=== PATIENT | female | born 1995 | race Two or more races ===

== ENCOUNTER → 2017-03-22 | Outpatient (CLI) | payer OTHER ==
--- NOTE | 2017-03-23 05:32 | REP ---
Clinical: Dyspareunia . Technique: Transabdominal pelvic ultrasound followed by transvaginal examination for better evaluation of the endometrium and adnexa. Findings: Bladder is unremarkable and measures 8.4 x 6.7 x 4.6 cm . Normal anteverted uterus measures 8.0 x 2.9 x 4.3 cm . The endometrial complex measures 5.5 mm thickness. No discrete uterine or endometrial abnormalities are appreciated. Bilateral ovaries are normal in appearance and vascularity without evidence for torsion. Right ovary measures 2.8 x 2.2 x 2.2 cm with sub centimeter follicle. Left ovary measures 3.0 x 1.4 x 3.0 cm. No pelvic fluid or adnexal mass lesions. . Impression: 1. Normal pelvic ultrasound Signed by Jarred Powell MD 03/23/2017 05:23 A
== END ==
LOC: M WHC 09:47
PROVIDERS: ATTEND Nurse Practitioner Women's Health
DX: N94.10 Unspecified dyspareunia (principal)

== ENCOUNTER → 2017-04-07 | Outpatient (REF) | payer OTHER ==
[2017-04-07 12:17] LABS: BASO % 0.5 % (0.0-1.0); EOS # 0.1 K/mm3 (0.0-0.50); EOS % 1.3 % (0.0-3.0); LARGE UNSTAINED CELL # 0.1 K/mm3 (0.0-0.4); LARGE UNSTAINED CELL % 1.3 % (0.0-4.0); LYMPH # 1.8 K/mm3 (1.5-6.5); LYMPH % 24.3 % (24.0-44.0); MEAN CORPUSCULAR VOLUME 91.1 fl (80.0-96.0); MONO # 0.3 K/mm3 (0.0-0.8); MONO % 4.7 % (0.0-5.0); NEUTROPHILS # 4.8 K/mm3 (1.8-7.7); NEUTROPHILS % 67.9 % (36.0-66.0); PLATELET COUNT, AUTOMATED 337 k/mm3 (150-450); RED CELL DISTRIBUTION WIDTH 12.5 % (11.5-14.5); WHITE BLOOD COUNT 7.1 K/mm3 (4.0-10.0)
[2017-04-07 12:56] LABS: PROLACTIN 10.5 NG/ML
[2017-04-07 13:21] LABS: ALBUMIN 3.8 GM/DL (3.2-5.2); ALBUMIN/GLOBULIN RATIO 1.19 (1.00-1.93); ALKALINE PHOSPHATASE 67 U/L (45-117); ALT/SGPT 30 U/L (12-78); ANION GAP 9 MEQ/L (8-16); AST/SGOT 20 U/L (15-37); BILIRUBIN,TOTAL 0.5 MG/DL (0.2-1.0); BLOOD UREA NITROGEN 11 MG/DL (7-18); CALCIUM LEVEL 8.9 MG/DL (8.5-10.1); CARBON DIOXIDE LEVEL 27 MEQ/L (21-32); CHLORIDE LEVEL 105 MEQ/L (98-107); CREATININE FOR GFR 0.71 MG/DL (0.55-1.02); GLOMERULAR FILTRATION RATE > 60.0 (>60); GLUCOSE, FASTING 76 MG/DL (70-105); SODIUM LEVEL 141 MEQ/L (136-145)
== END ==
LOC: M LABDRAW1 10:55
PROVIDERS: ATTEND Family Medicine
DX: N94.12 Deep dyspareunia (principal)

== ENCOUNTER → 2018-09-28 | Outpatient (REF) | payer OTHER | LOC: M LAB REF 12:24 | DX: J02.9 Acute pharyngitis, unspecified (principal) ==

== ENCOUNTER → 2019-12-12 | Outpatient (CLI) | payer OTHER | LOC: M PLALAB 11:33 | PROVIDERS: ATTEND Advanced Practice Midwife | DX: O36.80X0 Pregnancy with inconclusive fetal viability, not applicable or unspecified (principal) ==

== ENCOUNTER → 2019-12-20 | Outpatient (CLI) | payer OTHER ==
--- NOTE | 2019-12-21 04:39 | REP ---
Clinical: Dating and viability. Technique: Transabdominal and transvaginal first trimester obstetrical ultrasound with color Doppler evaluation. Findings: Ultrasound examination demonstrates single live early intrauterine . CRL of 3.0 cm corresponds to 9 weeks 6 days gestational age with estimated date of delivery 07/18/2020. heart rate equals 154 beats per minute. No gross abnormalities are identified. Impression: Single live early intrauterine at 9 weeks 6 days gestational age. Complete anatomical assessment should be performed at 19-20 weeks.
== END ==
LOC: M WHC 15:00
PROVIDERS: ATTEND Advanced Practice Midwife
DX: O36.80X0 Pregnancy with inconclusive fetal viability, not applicable or unspecified (principal)

== ENCOUNTER → 2020-01-11 | Outpatient (CLI) | payer OTHER ==
[2020-01-11 19:28] LABS: HEMATOCRIT 36.9 % (36.0-47.0); HEMOGLOBIN 12.7 g/dl (12.0-15.5); MEAN CORPUSCULAR HEMOGLOBIN 30.7 pg (27.0-33.0); MEAN CORPUSCULAR HGB CONC 34.4 g/dl (32.0-36.5); MEAN CORPUSCULAR VOLUME 89.1 fl (80.0-96.0); PLATELET COUNT, AUTOMATED 339 10^3/uL (150-450); RED BLOOD COUNT 4.14 10^6/uL (4.00-5.40); WHITE BLOOD COUNT 11.3 10^3/uL (4.0-10.0)
[2020-01-11 21:08] LABS: CHLAMYDIA DNA AMPLIFICATION NEGATIVE (NEGATIVE); GC DNA AMPLIFICATION NEGATIVE (NEGATIVE)
[2020-01-14 11:06] LABS: HEPATITIS B SURFACE ANTIGEN NEGATIVE (NEGATIVE); HIV 1&2 SCREEN CENTAUR NEGATIVE (NEGATIVE); RUBELLA IgG QUALITATIVE IMMUNE (IMMUNE)
== END ==
LOC: M ADAMS 15:29
PROVIDERS: ATTEND Advanced Practice Midwife
DX: Z34.01 Encounter for supervision of normal first pregnancy, first trimester (principal); Z3A.00 Weeks of gestation of pregnancy not specified

== ENCOUNTER → 2020-02-27 | Outpatient (CLI) | payer BC ==
--- NOTE | 2020-02-27 13:37 | REP ---
OB ULTRASOUND: Real-time sonographic evaluation of the gravid uterus is performed. There is a single living intrauterine gestation with an estimated gestational age 19 weeks 5 days, EDC 07/18/2020. Today's measurements indicate appropriate growth. Biometry and Growth: BPD 46 mm = 19 weeks 6 days, 55th percentile HC 172 mm = 19 weeks 5 days, 52nd percentile AC 143 mm = 19 weeks 4 days, 49th percentile FL 31 mm = 19 weeks 5 days, 50th percentile HC/AC ratio 1.20, normal range 1.06 to 1.25. Estimated weight 307 grams, 46th percentile. SEEN/GROSSLY UNREMARKABLE Lateral ventricles Yes Posterior fossa Yes Upper lip Yes Four-chamber heart Yes LVOT Yes RVOT Yes Stomach Yes Cord insertion Yes Three vessel cord Yes Kidneys Yes Bladder Yes Spine Yes Cervical length: Closed and measures 3.4 cm in length. heart rate: 163 beats per minute. position: Variable. Placenta: Anterior and grade 1 with no previa or abruption. Amniotic fluid: Within normal limits.
== END ==
LOC: M WHC 10:57
PROVIDERS: ATTEND Advanced Practice Midwife
DX: Z34.02 Encounter for supervision of normal first pregnancy, second trimester (principal); Z3A.19 19 weeks gestation of pregnancy

== ENCOUNTER → 2020-03-12 | Outpatient (REF) | payer BC, OTHER | LOC: M PLALAB 07:41 | PROVIDERS: ATTEND Advanced Practice Midwife | DX: Z34.02 Encounter for supervision of normal first pregnancy, second trimester (principal) ==

== ENCOUNTER → 2020-04-16 | Outpatient (REF) | payer BC, OTHER ==
[2020-04-16 13:51] LABS: HEMATOCRIT 38.7 % (36.0-47.0); HEMOGLOBIN 12.8 g/dl (12.0-15.5); MEAN CORPUSCULAR HEMOGLOBIN 30.5 pg (27.0-33.0); MEAN CORPUSCULAR HGB CONC 33.1 g/dl (32.0-36.5); MEAN CORPUSCULAR VOLUME 92.1 fl (80.0-96.0); PLATELET COUNT, AUTOMATED 326 10^3/uL (150-450); WHITE BLOOD COUNT 8.9 10^3/uL (4.0-10.0)
== END ==
LOC: M PLALAB 08:44
PROVIDERS: ATTEND Advanced Practice Midwife
DX: Z34.02 Encounter for supervision of normal first pregnancy, second trimester (principal)

== ENCOUNTER → 2020-06-25 | Outpatient (REF) | payer BC, OTHER | LOC: M SFHCWAGY 12:20 | PROVIDERS: ATTEND Advanced Practice Midwife | DX: Z34.83 Encounter for supervision of other normal pregnancy, third trimester (principal) ==

== ENCOUNTER 2020-07-05 03:30 | Inpatient (IN) | payer BC, OTHER ==
[2020-07-05] MEDS ORDERED: PENICILLIN G POTASSIUM 5 MU VIAL ONE (04:11)
[2020-07-05] MEDS ORDERED: FENTANYL 2MCG/ML ROPIVACAINE 0.2% IN 0.9% NACL 100ML IVBAG ONE (04:28)
[2020-07-05] MEDS ORDERED: OXYTOCIN 30 UNITS IN 0.9% NaCl 500ML IV BAG (J2590) ONE (07:05)
[2020-07-05] MEDS ORDERED: PENICILLIN 100,000 U/ML SYRINGE 2.5MU ONE (08:28)
[2020-07-05] MEDS ORDERED: LIDOCAINE 1% MDV 20ML VIAL ONE (13:45)
[2020-07-05] MEDS ORDERED: IBUPROFEN 800 MG TAB ONE (15:58)
[2020-07-06] MEDS ORDERED: IBUPROFEN 800 MG TAB ONE ×2 (00:29→17:11)
[2020-07-06] MEDS ORDERED: IBUPROFEN 800 MG TAB As Ordered ONE ×2 (00:29→17:11)
[2020-07-06] MEDS ORDERED: ACETAMINOPHEN 500 MG TAB As Ordered ONE (10:27)
[2020-07-06] MEDS ORDERED: ACETAMINOPHEN 500 MG TAB ONE (10:27)
[2020-07-06] MEDS ORDERED: DOCUSATE SODIUM 100 MG CAP As Ordered ONE (20:39)
[2020-07-06] MEDS ORDERED: DOCUSATE SODIUM 100 MG CAP ONE (20:39)
[2020-08-22 14:25] LABS: HEMATOCRIT 39.7 % (36.0-47.0); HEMOGLOBIN 13.5 g/dl (12.0-15.5); MEAN CORPUSCULAR HEMOGLOBIN 30.1 pg (27.0-33.0); MEAN CORPUSCULAR VOLUME 88.4 fl (80.0-96.0); PLATELET COUNT, AUTOMATED 346 10^3/uL (150-450); RED BLOOD COUNT 4.49 10^6/uL (4.00-5.40); WHITE BLOOD COUNT 13.8 10^3/uL (4.0-10.0)
--- NOTE | 2020-09-04 15:59 | DN ---
DATE OF DELIVERY: 07/05/2020 PREDELIVERY DIAGNOSIS: Term , labor. POST DELIVERY DIAGNOSIS: Delivered. PROCEDURE: Spontaneous vaginal delivery. LEAD RIDER: Chaim De Anda M.D. ANESTHESIA: Epidural. ESTIMATED BLOOD LOSS: 300 mL. FINDINGS: A 7-pound 0-ounce male , scores 8 and 9. DESCRIPTION OF DELIVERY: After a 30-minute second stage, patient had spontaneous delivery of a 7-pound 0-ounce male , scores 8 and 9, under epidural anesthesia. A tight nuchal cord times one was clamped and cut on the perineum. The shoulders delivered with ease. The infant was handed to the mother. The placenta delivered spontaneous and appeared to be intact. The patient received intravenous (IV) Pitocin immediately after delivery of the placenta. A second- degree perineal laceration was repaired under local anesthesia with 2-0 chromic in the usual fashion. Sponge and needle counts were correct. MTDD
== END 2020-07-07 08:30 | disposition home or self-care (01) | DRG 560 ==
LOC: M LDI 03:30
PROVIDERS: ADMIT Advanced Practice Midwife; ATTEND Advanced Practice Midwife
PROC: 10E0XZZ Delivery of Products of Conception, External Approach (ICD-10-PCS; principal; 2020-07-05)
PROC: 0KQM0ZZ Repair Perineum Muscle, Open Approach (ICD-10-PCS; 2020-07-05)
DX: O69.1XX0 Labor and delivery complicated by cord around neck, with compression, not applicable or unspecified (principal); O70.1 Second degree perineal laceration during delivery; Z37.0 Single live birth; Z3A.38 38 weeks gestation of pregnancy

== ENCOUNTER → 2021-06-18 | Outpatient (REF) | payer BC, OTHER | LOC: M SFHCWAGY 18:39 | PROVIDERS: ATTEND Specialist | DX: Z01.419 Encounter for gynecological examination (general) (routine) without abnormal findings (principal) ==

== ENCOUNTER → 2021-10-06 | Outpatient (CLI) | payer BC, OTHER | LOC: M PLALAB 15:32 | PROVIDERS: ATTEND Advanced Practice Midwife | DX: O36.80X0 Pregnancy with inconclusive fetal viability, not applicable or unspecified (principal) ==

== ENCOUNTER → 2021-10-08 | Outpatient (CLI) | payer BC | LOC: M LAB 16:13 | PROVIDERS: ATTEND Advanced Practice Midwife | DX: O36.80X0 Pregnancy with inconclusive fetal viability, not applicable or unspecified (principal); Z3A.00 Weeks of gestation of pregnancy not specified ==

== ENCOUNTER → 2021-10-29 | Outpatient (CLI) | payer BC, OTHER ==
[2021-10-29 17:52] LABS: HEMATOCRIT 37.8 % (36.0-47.0); HEMOGLOBIN 12.9 g/dl (12.0-15.5); MEAN CORPUSCULAR HEMOGLOBIN 30.4 pg (27.0-33.0); MEAN CORPUSCULAR HGB CONC 34.1 g/dl (32.0-36.5); MEAN CORPUSCULAR VOLUME 89.2 fl (80.0-96.0); PLATELET COUNT, AUTOMATED 318 10^3/uL (150-450); RED BLOOD COUNT 4.24 10^6/uL (4.00-5.40); WHITE BLOOD COUNT 10.6 10^3/uL (4.0-10.0)
[2021-10-29 19:08] LABS: HEPATITIS C VIRUS ABY INDEX 0.1 INDEX (<0.8); HIV 1&2 SCREEN CENTAUR NEGATIVE (NEGATIVE)
[2021-10-29 19:32] LABS: GC DNA AMPLIFICATION NEGATIVE (NEGATIVE)
== END ==
LOC: M PLALAB 15:29
PROVIDERS: ATTEND Advanced Practice Midwife
DX: Z34.81 Encounter for supervision of other normal pregnancy, first trimester (principal); Z3A.00 Weeks of gestation of pregnancy not specified

== ENCOUNTER → 2021-11-11 | Outpatient (REF) | payer BC, OTHER | LOC: M LAB REF 19:09 | PROVIDERS: ATTEND Nurse Practitioner Family | DX: A08.4 Viral intestinal infection, unspecified (principal) ==

== ENCOUNTER → 2022-02-19 | Outpatient (CLI) | payer BC ==
[2022-02-19 13:33] LABS: HEMATOCRIT 33.7 % (36.0-47.0); HEMOGLOBIN 11.7 g/dl (12.0-15.5); MEAN CORPUSCULAR HGB CONC 34.7 g/dl (32.0-36.5); MEAN CORPUSCULAR VOLUME 92.1 fl (80.0-96.0); PLATELET COUNT, AUTOMATED 264 10^3/uL (150-450); RED BLOOD COUNT 3.66 10^6/uL (4.00-5.40); WHITE BLOOD COUNT 10.7 10^3/uL (4.0-10.0)
[2022-02-19 15:02] LABS: GC DNA AMPLIFICATION NEGATIVE (NEGATIVE)
== END ==
LOC: M PLALAB 09:50
PROVIDERS: ATTEND Specialist
DX: Z34.82 Encounter for supervision of other normal pregnancy, second trimester (principal)

== ENCOUNTER → 2022-05-14 | Outpatient (REF) | payer BC, OTHER ==
[~2022-05-14] MED LIST: PRENTAB9 PO
== END ==
LOC: M SFHCWAGY 17:23
PROVIDERS: ATTEND Advanced Practice Midwife
DX: Z36.85 Encounter for antenatal screening for Streptococcus B (principal)

== ENCOUNTER 2022-05-26 17:28 | Inpatient (IN) | payer BC, OTHER ==
[~2022-05-26] VITALS: Ht 157.5 cm; Wt 83.6 kg
[2022-05-26 17:44] VITALS: BP 114/74
[2022-05-26] MEDS ORDERED: PENICILLIN G POTASSIUM IV 5 MU in D5W MINI-BAG PLUS 100 ML IV STA (17:52)
[2022-05-26] MEDS ORDERED: LIDOCAINE 1% MDV 20ML VIAL INFIL PRN (17:55)
[2022-05-26] MEDS ORDERED: LR 1,000 ML IV SCH ×2 (17:55→18:15)
[2022-05-26] MEDS ORDERED: TRANEXAMIC ACID INJection 1,000 MG in NS 100 ML IV PRN (17:55)
[2022-05-26] MEDS ORDERED: METHYLERGONOVINE MALEATE 0.2 MG/ML VIAL (J2210) IM PRN (17:55)
[2022-05-26] MEDS ORDERED: OXYTOCIN DRIP 30 UNITS in IV 1 EA IV PRN ×4 (17:55)
[2022-05-26] MEDS ORDERED: OXYTOCIN INJ 10 UNITS/ML VIAL (J2590) IM PRN (17:55)
[2022-05-26] MEDS ORDERED: CARBOPROST TROMETHAMINE 250 MCG/ML AMP IM PRN (17:55)
[2022-05-26] MEDS ORDERED: TUMS500C PO (17:59)
[2022-05-26] MEDS ORDERED: HOME MED LIST COMPLETE! XX SCH ×2 (18:00→18:30)
[2022-05-26] MEDS ORDERED: LACTATED RINGER'S 1000 ML IV ONE (18:15)
[2022-05-26 18:23] LABS: HEMATOCRIT 35.5 % (36.0-47.0); HEMOGLOBIN 12.2 g/dl (12.0-15.5); MEAN CORPUSCULAR HEMOGLOBIN 30.7 pg (27.0-33.0); MEAN CORPUSCULAR HGB CONC 34.4 g/dl (32.0-36.5); MEAN CORPUSCULAR VOLUME 89.4 fl (80.0-96.0); PLATELET COUNT, AUTOMATED 329 10^3/uL (150-450); RED BLOOD COUNT 3.97 10^6/uL (4.00-5.40)
[2022-05-26] MEDS ORDERED: FENTANYL 2MCG/ML ROPIVACAINE 0.2% IN 0.9% NACL 100ML IVBAG As Ordered ONE (18:48)
[2022-05-26 19:33] VITALS: BP 102/70
[2022-05-26] MEDS ORDERED: ACETAMINOPHEN 500 MG TAB PO PRN (19:40)
[2022-05-26] MEDS ORDERED: ACETAMINOPHEN TAB 650MG DOSE (2X325MG) PO PRN (19:40)
[2022-05-26] MEDS ORDERED: IBUPROFEN 800 MG TAB PO PRN (19:40)
[2022-05-26] MEDS ORDERED: RHOGAM 300 MCG (1500 IU) INJ (J2790) IM SCH (19:40)
[2022-05-26] MEDS ORDERED: IBUPROFEN 600MG TAB PO PRN (19:40)
[2022-05-26] MEDS ORDERED: DIBUCAINE 1% OINTMENT 30GM TOP PRN (19:40)
[2022-05-26] MEDS ORDERED: METHYLERGONOVINE MALEATE 0.2 MG TAB PO PRN (19:40)
[2022-05-26] MEDS ORDERED: DOCUSATE SODIUM 100MG CAPSULE PO PRN (19:40)
[2022-05-26] MEDS ORDERED: OXYTOCIN DRIP 30 UNITS in IV 1 EA IV SCH (19:40)
[2022-05-26 19:47] VITALS: BP 111/68
[2022-05-26 20:02] VITALS: BP 117/71
[2022-05-26 20:17] VITALS: BP 117/74
[2022-05-26 20:47] VITALS: BP 110/58
[2022-05-27 06:00] VITALS: BP 103/57
[2022-05-27] MEDS: PRENATAL VITAMINS CHEWABLE TABLET PO SCH (08:03)
[2022-05-27 16:05] VITALS: BP 90/50
[2022-05-28] MEDS: PRENATAL VITAMINS CHEWABLE TABLET PO SCH ×2 (09:00→09:13)
[2022-05-28] MEDS ORDERED: MEASLES,MUMPS,RUBELLA VACCINE INJ (MMR-II) (90707) SC.IMMUN ONE (09:00)
== END 2022-05-28 11:20 | disposition home or self-care (01) | DRG 560 ==
LOC: M LDO 17:28 → M LDI 17:53 → M OBS 20:45
PROVIDERS: ADMIT Advanced Practice Midwife; ATTEND Advanced Practice Midwife
PROC: 10E0XZZ Delivery of Products of Conception, External Approach (ICD-10-PCS; principal; 2022-05-26)
PROC: 0HQ9XZZ Repair Perineum Skin, External Approach (ICD-10-PCS; 2022-05-26)
DX: O70.0 First degree perineal laceration during delivery (principal); Z86.16 Personal history of COVID-19; Z37.0 Single live birth; Z3A.38 38 weeks gestation of pregnancy

== ENCOUNTER 2024-02-28 02:39 | Emergency (ER) | payer BC, OTHER ==
[~2024-02-28 02:39] MED LIST changes: +TUMS500C PO
[2024-02-28 03:13] LABS: BASO % 0.4 % (0.0-1.0); EOS # 0.1 10^3/uL (0.0-0.5); EOS % 1.4 % (0.0-3.0); HEMATOCRIT 39.8 % (36.0-47.0); HEMOGLOBIN 13.9 g/dl (12.0-15.5); LYMPH # 2.3 10^3/uL (1.5-5.0); LYMPH % 32.3 % (24.0-44.0); MEAN CORPUSCULAR HEMOGLOBIN 31.2 pg (27.0-33.0); MEAN CORPUSCULAR HGB CONC 34.9 g/dl (32.0-36.5); MEAN CORPUSCULAR VOLUME 89.2 fl (80.0-96.0); MONO # 0.6 10^3/uL (0.0-0.8); MONO % 8.3 % (2.0-8.0); NEUTROPHILS % 57.2 % (36.0-66.0); PLATELET COUNT, AUTOMATED 249 10^3/uL (150-450); RED BLOOD COUNT 4.46 10^6/uL (4.00-5.40)
[2024-02-28 03:38] LABS: CK-MB VALUE MASS 2.3 NG/ML (<3.6)
[2024-02-28 03:39] LABS: LIPASE 26 U/L (12-53)
[2024-02-28 03:41] LABS: ALBUMIN 3.5 G/DL (3.2-5.2); ALKALINE PHOSPHATASE 55 U/L (46-116); ALT/SGPT 22 U/L (7.0-40); AST/SGOT 16 U/L (<34); BILIRUBIN,DIRECT 0.1 MG/DL (<0.4); BILIRUBIN,TOTAL 0.3 MG/DL (0.3-1.2); BLOOD UREA NITROGEN 15 MG/DL (9-23); CALCIUM LEVEL 8.6 MG/DL (8.5-10.1); CARBON DIOXIDE LEVEL 25 MMOL/L (20-31); CHLORIDE LEVEL 108 MMOL/L (98-107); CREATININE FOR GFR 0.74 MG/DL (0.55-1.30); GLOMERULAR FILTRATION RATE > 60.0 (>60); GLUCOSE, FASTING 110 MG/DL (60-100); POTASSIUM SERUM 3.7 MMOL/L (3.5-5.1); SODIUM LEVEL 141 MMOL/L (136-145); TOTAL PROTEIN 6.3 G/DL (5.7-8.2)
[2024-02-28 03:42] LABS: FREE T4 1.02 NG/DL (0.89-1.76); HCG, SERUM QUALITATIVE NEGATIVE (NEGATIVE); THYROID STIMULATING HORMONE 4.455 uIU/ML (0.55-4.78)
[2024-02-28 03:44] LABS: CPK CREATINE PHOSPHOKINASE 187 U/L (34-145); MB/CK RELATIVE INDEX 1.22 (< OR =4)
[2024-02-28 04:00] VITALS: TEMP 98.8
[2024-02-28 04:53] LABS: CK-MB VALUE MASS 2.1 NG/ML (<3.6)
[2024-02-28 04:54] LABS: MB/CK RELATIVE INDEX 1.26 (< OR =4)
[2024-02-28 05:21] VITALS: BP 113/64; O2SAT 98
== END 2024-02-28 05:25 | disposition home or self-care (01) ==
LOC: M ED 02:39
DX: R07.9 Chest pain, unspecified (principal); I45.10 Unspecified right bundle-branch block; Z79.810 Long term (current) use of selective estrogen receptor modulators (SERMs); Z79.899 Other long term (current) drug therapy

== ENCOUNTER → 2024-07-17 | Outpatient (REF) | payer BC ==
[2024-07-17 18:56] LABS: APPEARANCE, URINE MANUAL TURBID (CLEAR)
[2024-07-17 18:57] LABS: COLOR, URINE MANUAL ORANGE (YELLOW); GLUCOSE, URINE (UA) MANUAL NEGATIVE (NEGATIVE)
[2024-07-17 18:58] LABS: BILIRUBIN, URINE MANUAL OBSCURED (NEGATIVE); BLOOD URINE MANUAL NEGATIVE (NEGATIVE); KETONE, URINE MANUAL NEGATIVE (NEGATIVE); LEUKOCYTE ESTERASE, URINE MAN OBSCURED (NEGATIVE); NITRITE, URINE MANUAL OBSCURED (NEGATIVE); PROTEIN, URINE MANUAL OBSCURED mg/dL (NEGATIVE); UROBILINOGEN, URINE MANUAL OBSCURED mg/dl (NORMAL)
[2024-07-17 19:00] LABS: YEAST, URINE SMALL AMOUNT
[2024-07-17 19:03] LABS: SQUAMOUS EPITHELIAL CELL URINE LARGE AMOUNT /hpf (SMALL AMT)
[2024-07-17 19:04] LABS: BACTERIA, URINE SMALL AMOUNT
[2024-07-17 19:14] LABS: RBC, URINE NONE SEEN /hpf (0-3)
== END ==
LOC: M LAB REF 17:18
PROVIDERS: ATTEND Registered Nurse
DX: R35.0 Frequency of micturition (principal)

== ENCOUNTER → 2024-08-22 | Outpatient (REF) | payer BC | LOC: M SFHCWAGY 13:19 | PROVIDERS: ATTEND Specialist | DX: Z01.419 Encounter for gynecological examination (general) (routine) without abnormal findings (principal); Z12.4 Encounter for screening for malignant neoplasm of cervix; Z77.9 Other contact with and (suspected) exposures hazardous to health ==

== ENCOUNTER → 2025-02-21 | Outpatient (CLI) | payer BC ==
[2025-02-21 11:23] LABS: BASO # 0.1 10^3/uL (0.0-0.2); BASO % 0.7 % (0.0-1.0); EOS # 0.1 10^3/uL (0.0-0.5); EOS % 1.4 % (0.0-3.0); HEMATOCRIT 42.9 % (36.0-47.0); HEMOGLOBIN 14.3 g/dl (12.0-15.5); LYMPH # 2.1 10^3/uL (1.5-5.0); LYMPH % 29.6 % (24.0-44.0); MEAN CORPUSCULAR HGB CONC 33.3 g/dl (32.0-36.5); MEAN CORPUSCULAR VOLUME 89.9 fl (80.0-96.0); MONO # 0.6 10^3/uL (0.0-0.8); MONO % 9.1 % (2.0-8.0); NEUTROPHILS # 4.1 10^3/uL (1.5-8.5); NEUTROPHILS % 58.8 % (36.0-66.0); PLATELET COUNT, AUTOMATED 327 10^3/uL (150-450); RED BLOOD COUNT 4.77 10^6/uL (4.00-5.40)
[2025-02-21 11:33] LABS: ERYTHROCYTE SEDIMENTATION RATE 6 mm/hr (0-20)
[2025-02-21 11:36] LABS: HEMOGLOBIN A1c 4.5 % (4.0-6.0)
[2025-02-21 11:55] LABS: IRON (FE) 145 UG/DL (50-170)
[2025-02-21 11:56] LABS: ALBUMIN 3.9 G/DL (3.2-5.2); ALKALINE PHOSPHATASE 57 U/L (35-104); ALT/SGPT 28 U/L (7.0-40); AST/SGOT 18 U/L (<34); BILIRUBIN,TOTAL 0.7 MG/DL (0.3-1.2); BLOOD UREA NITROGEN 9 MG/DL (9-23); C REACTIVE PROTEIN QUANTITATIV < 0.50 MG/DL (<1.0); CALCIUM LEVEL 9.2 MG/DL (8.5-10.1); CARBON DIOXIDE LEVEL 25 MMOL/L (20-31); CHLORIDE LEVEL 108 MMOL/L (98-107); CREATININE FOR GFR 0.72 MG/DL (0.55-1.30); FERRITIN 43.1 NG/ML (7.3-270.7); FOLATE 23.1 NG/ML (>5.4); GLOMERULAR FILTRATION RATE > 60.0 (>60); GLUCOSE, FASTING 72 MG/DL (60-100); MAGNESIUM LEVEL 2.1 MG/DL (1.8-2.4); PERCENT SATURATION 44.1 % (13.2-45.0); POTASSIUM SERUM 4.6 MMOL/L (3.5-5.1); SODIUM LEVEL 141 MMOL/L (136-145); TOTAL IRON BINDING CAPACITY 329 UG/DL (250-425); TOTAL PROTEIN 7.2 G/DL (5.7-8.2); VITAMIN B12 LEVEL 589 PG/ML (211-911)
[2025-02-25 09:38] LABS: INSULIN TOTAL2 6.2 uIU/mL (<=18.4)
[2025-02-26 14:57] LABS: ANA SCREEN, IFA NEGATIVE (NEGATIVE)
[2025-02-26 19:52] LABS: LYME TOTAL ANTIBODY CIA <= 0.90 Index (<=0.90)
== END ==
LOC: M PLALAB 08:54
PROVIDERS: ATTEND Registered Nurse
DX: R53.83 Other fatigue (principal)

== ENCOUNTER → 2025-10-31 | Outpatient (CLI) | payer BC ==
[2025-10-31 10:08] LABS: ALT/SGPT 33 U/L (7.0-40); AST/SGOT 22 U/L (<34); CALCIUM LEVEL 8.8 MG/DL (8.5-10.1); CARBON DIOXIDE LEVEL 27 MMOL/L (20-31); CHLORIDE LEVEL 106 MMOL/L (98-107); CREATININE FOR GFR 0.74 MG/DL (0.55-1.30); GLOMERULAR FILTRATION RATE > 90.0 (>60); POTASSIUM SERUM 4.4 MMOL/L (3.5-5.1); SODIUM LEVEL 141 MMOL/L (136-145)
== END ==
LOC: M RAD 07:34
PROVIDERS: ATTEND Nurse Practitioner Family
DX: R10.11 Right upper quadrant pain (principal); K80.20 Calculus of gallbladder without cholecystitis without obstruction